=== PATIENT | female | born 1995 | race African-American/Black ===

== ENCOUNTER 2017-06-13 10:58 | Emergency (ER) | payer BC ==
[~2017-06-13] VITALS: Ht 157.5 cm; Wt 60.6 kg
[2017-06-13 11:00] VITALS: TEMP 36.9; Ht 157.5 cm; Wt 60.6 kg
[2017-06-13] MEDS ORDERED: MoRPHine SULFATE 10 MG/ML CARP/VIAL ONE (11:05)
[2017-06-13] MEDS ORDERED: ONDANSETRON 4MG OD TAB ONE (11:06)
[2017-06-13] MEDS ORDERED: SODIUM CHLORIDE 0.9% 1000ML 1,000 ML IV STA (11:35)
[2017-06-13] MEDS ORDERED: BCPILLS PO (11:41)
[2017-06-13] MEDS ORDERED: CHOL1000 PO (11:41)
--- NOTE | 2017-06-13 11:45 | EMERGENCY ROOM VISIT NOTE ---
History First contact with patient: 11:12 Chief Complaint: ABDOMINAL PAIN Stated Complaint: ABDOMINAL PAIN Nursing Triage Summary: See triage note History of Present Illness The patient is a 22 year old female who presents to the Emergency Room with complaints of pelvic pain which has been ongoing intermittently for the past few weeks. The patient states last week, she went to [facility] , where she was scheduled for an ultrasound which is to be performed this Monday. She states yesterday, her pain worsened and became more severe across her entire lower abdomen. She went to [facility] where a pelvic examination with cultures was ordered and performed, and she was diagnosed with pelvic inflammatory disease. The patient was started on doxycycline 100 mg twice daily 14 days and Flagyl 500 mg twice daily 14 days, Plan B, and oral contraceptive pills, as she had unprotected sex 2 days ago. The patient states last evening, she took all medications after dinner, and did not note any significant problems. This morning, she did not eat breakfast, but took her first dose of doxycycline in class on an empty stomach, and shortly afterwards began experiencing nausea, dizziness, and one episode of vomiting. She states the pelvic pain returned, and went from a 6/10 to a 9/10. She states at that time, she became slightly disoriented and was complaining of some mild palpitations. Her symptoms improved, however she contacted the ambulance for transport to the emergency department, as she continued to have some mild pain. She does report one episode of diarrhea a few days ago, but has not had anything since. She denies any fever, chills, upper respiratory infection symptoms, difficulty breathing, cough, or chest pain. She states she has had a mild sore throat which began yesterday, but denies any other symptoms. She describes the abdominal pain as a dull, constant ache, and when worse it becomes very sharp and stabbing. The symptoms are worse on palpation, but improved after she was given morphine. She still has not had anything to eat. She denies any vaginal discharge pain. She does report pain with intercourse. Her last menstrual period was June 04. Review of Systems A complete 10 point review of systems was reviewed with the patient with pertinent positives and negatives as per history of present illness. All else were negative. Past Medical/Surgical History None Social History Smoking Status: Never Smoker Smokeless Tobacco Use: No Alcohol Use: none Drug Use: none Marital Status: single Housing Status: lives with roommate Occupation Status: [employer] student Current/Historical Medications Scheduled Control Pills ( Control Pills), 1 TAB PO DAILY Cholecalciferol (Vitamin D3), 1,000 UNITS PO DAILY Ondasetron Odt (Zofran Odt), 4 MG SL Q6H Physical Exam Vital Signs Date Time Temp Pulse Resp B/P (MAP) Pulse Ox O2 Delivery O2 Flow Rate FiO2 06/13/17 13:00 64 18 101/70 100 Room Air 06/13/17 11:00 36.9 100 16 124/80 100 Room Air Physical Exam VITALS: Vitals are noted on the nurse's note and reviewed by myself. Vital signs stable. GENERAL: This is a 22-year-old black female, in no acute distress, nondiaphoretic, well-developed well-nourished. SKIN: The skin was without rashes, erythema, edema, or bruising. There is no tenting of the skin. Capillary reflex less than 2 seconds. HEAD: Normocephalic atraumatic. EARS: External auditory canals clear, tympanic membranes pearly escamilla without erythema or effusion bilaterally. EYES: Pupils equal round and reactive to light and accommodation. Conjunctivae without injection, sclerae without icterus. Extraocular movements intact. NOSE: Patent, turbinates without inflammation or discharge. No sinus tenderness. MOUTH: Mucous membranes moist. Tonsils are not enlarged. Pharynx without erythema or exudate. Uvula midline. Airway patent. Tongue does not deviate. NECK: Supple without nuchal rigidity. No lymphadenopathy. No thyromegaly. Cervical spine is nontender. No JVD. HEART: Regular rate and rhythm without murmurs gallops or rubs. LUNGS: Clear to auscultation bilaterally without wheezes, rales or rhonchi. No dullness to percussion. No retractions or accessory muscle use. ABDOMEN: Positive bowel sounds x 4. Normal tympanic percussion. Tenderness on palpation of the right lower and left lower quadrants, over the pelvis. The abdomen was otherwise soft, nontender, without masses or organomegaly. Hong sign negative. No guarding or rebound tenderness. MUSCULOSKELETAL: No muscle atrophy, erythema, or edema noted. Full range of motion without joint tenderness in all extremities. No tenderness to palpation. Normal gait. Strength 5/5 throughout. NEURO: Patient was alert and oriented to person place and time. Normal sensation to light and sharp touch. Deep tendon reflexes 2+ throughout. No focal neurological deficits. Medical Decision & Procedures ER Provider Diagnostic Interpretation: PELVIC COMPLETE NON OB CLINICAL HISTORY: pelvic pain PAIN COMPARISON STUDY: None FINDINGS: The uterus measured 7.2 cm. The endometrial stripe measured 8 mm. The right ovary measured 3.9 cm maximum dimension with normal vascular flow. The left ovary measured 3.7 cm maximum dimension with normal vascular flow.. There is no ultrasonographic evidence of ovarian torsion. It should be noted that ovarian torsion can be present with normal Doppler ultrasonographic findings. There was no evidence of pathologic free pelvic fluid. IMPRESSION: Normal pelvic ultrasound. Small subcentimeters ovarian follicular cysts bilaterally. Normal vascular flow. Laboratory Results 06/13/17 11:49 Red Blood Count 5.28, Mean Corpuscular Volume 77.5, Mean Corpuscular Hemoglobin 26.3, Mean Corpuscular Hemoglobin Concent 34.0, Mean Platelet Volume 9.2, Neutrophils (%) (Auto) 70.8, Lymphocytes (%) (Auto) 23.0, Monocytes (%) (Auto) 4.0, Eosinophils (%) (Auto) 1.4, Basophils (%) (Auto) 0.4, Neutrophils # (Auto) 6.40, Lymphocytes # (Auto) 2.08, Monocytes # (Auto) 0.36, Eosinophils # (Auto) 0.13, Basophils # (Auto) 0.04 06/13/17 11:49 Test 06/13/17 11:49 White Blood Count 9.05 K/uL (4.8-10.8) Red Blood Count 5.28 M/uL (4.2-5.4) Hemoglobin 13.9 g/dL (12.0-16.0) Hematocrit 40.9 % (37-47) Mean Corpuscular Volume 77.5 fL (80-100) Mean Corpuscular Hemoglobin 26.3 pg (25-34) Mean Corpuscular Hemoglobin Concent 34.0 g/dl (32-36) Platelet Count 379 K/uL (130-400) Mean Platelet Volume 9.2 fL (7.4-10.4) Neutrophils (%) (Auto) 70.8 % Lymphocytes (%) (Auto) 23.0 % Monocytes (%) (Auto) 4.0 % Eosinophils (%) (Auto) 1.4 % Basophils (%) (Auto) 0.4 % Neutrophils # (Auto) 6.40 K/uL (1.4-6.5) Lymphocytes # (Auto) 2.08 K/uL (1.2-3.4) Monocytes # (Auto) 0.36 K/uL (0.11-0.59) Eosinophils # (Auto) 0.13 K/uL (0-0.5) Basophils # (Auto) 0.04 K/uL (0-0.2) RDW Standard Deviation 41.3 fL (36.4-46.3) RDW Coefficient of Variation 14.7 % (11.5-14.5) Immature Granulocyte % (Auto) 0.4 % Immature Granulocyte # (Auto) 0.04 K/uL (0.00-0.02) Urine Color DK YELLOW Urine Appearance CLEAR (CLEAR) Urine pH 6.0 (4.5-7.5) Urine Specific [place] 1.030 (1.000-1.030) Urine Protein NEG (NEG) Urine Glucose (UA) NEG (NEG) Urine Ketones 3+ (NEG) Urine Occult Blood NEG (NEG) Urine Nitrite NEG (NEG) Urine Bilirubin NEG (NEG) Urine Urobilinogen NEG (NEG) Urine Leukocyte Esterase TRACE (NEG) Urine WBC (Auto) 1-5 /hpf (0-5) Urine RBC (Auto) 0-4 /hpf (0-4) Urine Hyaline Casts (Auto) 1-5 /lpf (0-5) Urine Epithelial Cells (Auto) >30 /lpf (0-5) Urine Bacteria (Auto) NEG (NEG) Urine Test NEG (NEG) Anion Gap 7.0 mmol/L (3-11) Est Creatinine Clear Calc Drug Dose 96.6 ml/min Estimated GFR () 124.0 Estimated GFR (Non- 107.0 BUN/Creatinine Ratio 16.0 (10-20) Calcium Level 9.2 mg/dl (8.5-10.1) Total Bilirubin 0.5 mg/dl (0.2-1) Aspartate Amino Transf (AST/SGOT) 17 U/L (15-37) Alanine Aminotransferase (ALT/SGPT) 21 U/L (12-78) Alkaline Phosphatase 88 U/L (45-117) Total Protein 8.8 gm/dl (6.4-8.2) Albumin 4.6 gm/dl (3.4-5.0) Globulin 4.2 gm/dl (2.5-4.0) Albumin/Globulin Ratio 1.1 (0.9-2) Medications Administered Medications (Trade) Dose Ordered Sig/Merary Route Start Time Stop Time Status Last Admin Dose Admin Sodium Chloride 1,000 ml @ 999 mls/hr Q1H1M STAT IV 06/13/17 11:35 06/13/17 12:35 DC 06/13/17 11:35 999 MLS/HR ED Course Patient was seen and evaluated as above. She did arrive ALS, and was given IV morphine and Zofran prior to arrival. Labs collected and ultrasound performed. The patient was given 1 L normal saline solution. I contacted to [facility] regarding patient's previous visit. I did review the medical records faxed here from [facility]. She did have pelvic exam, labs drawn, and cultures obtained at [facility]. I discussed the findings of all testing performed with the patient at bedside. Discharge instructions reviewed, the patient was discharged home in good condition. Medical Decision This is a 22-year-old female patient presents to the emergency department today complaining of ongoing pelvic pain which has been going on since May. She is being followed by [facility], who have ordered some tests to be performed. She was diagnosed yesterday with pelvic inflammatory disorder, given 250 mg Rocephin, doxycycline, Flagyl, Plan B, and was advised to restart her control pills at that time. The patient took all of these medications last night without problems. She tried taking her medication this morning without eating, and shortly after taking medicine, began experiencing significant nausea, vomiting, and worsening pelvic pain. She was given morphine prior to arrival, and did improve significantly with this medication. She has been completely asymptomatic with the exception of some tenderness on examination while here in the emergency department. Urine test negative. CBC without leukocytosis, anemia, thrombocytopenia. CMP without significant renal, hepatic, or electrolyte abnormality. Ultrasound was as above , and did not show any obvious signs of torsion, ovarian cyst, or other causes of her pain. I suspect the patient is experiencing a pelvic inflammatory disease, did encourage her to continue follow-up with [facility]. I discussed with her that she should continue taking all medications as prescribed, and consider taking them with food, as this may help with her nausea. The patient was encouraged to use Zofran as needed for nausea. The patient may need referral to gynecology, however I feel that [facility] services can manage this, as they are already addressing the patient's other concerns. All questions were answered to patient's satisfaction. Differential diagnosis includes PID, chlamydia, gonorrhea, syphilis, HIV, , ectopic , ovarian cyst, ovarian torsion, endometriosis, urinary tract infection, renal colic, abscess, malignancy, and others Medication Reconcilliation Current Medication List: was personally reviewed by me Blood Pressure Screening Patient's blood pressure: Normal blood pressure Impression Primary Impression: Pelvic inflammatory disease (PID) Departure Information Dispostion Home / Self-Care Condition GOOD Prescriptions Ondasetron Odt (ZOFRAN ODT) 4 Mg Tab 4 MG SL Q6H for Nausea, #6 TAB Prov: Nadya Galeana PA-C 06/13/17 Referrals [facility] (PCP) Patient Instructions ED PID, My [facility] Additional Instructions You were seen in the ED today for pelvic pain, nausea, and vomiting. As discussed, I suspect your symptoms are related to recent PID diagnosis and side effects to all of the medications you are currently taking. Your workup here in the emergency department was overall negative. You were given pain medication while en route to the ED. Please do not drive or operate any machinery today. As discussed, I recommend taking the antibiotics you were prescribed with food to help decrease nausea. You have been prescribed Zofran to be used for any nausea or vomiting. Take as prescribed. Please continue to follow up with [facility] regarding ongoing management of your pelvic pain. As discussed, you may need referral to a [facility] administrator for further evaluation. Please continue to take all medications as prescribed. Return to the emergency department for significantly worsening abdominal pain, fever, intractable vomiting, significantly worsening systemic symptoms, or other concerning symptoms.
[2017-06-13 12:18] LABS: BASO % 0.4 %; BASO ABS # 0.04 K/uL (0-0.2); EOS % 1.4 %; EOS ABS # 0.13 K/uL (0-0.5); HEMATOCRIT 40.9 % (37-47); HEMOGLOBIN 13.9 g/dL (12.0-16.0); IG# 0.04 K/uL (0.00-0.02); LYMPH ABS # 2.08 K/uL (1.2-3.4); MEAN CELL VOLUME 77.5 fL (80-100); MEAN CORPUSCULAR HEMOGLOBIN 26.3 pg (25-34); MEAN PLATELET VOLUME 9.2 fL (7.4-10.4); MONO ABS # 0.36 K/uL (0.11-0.59); NEUT % 70.8 %; PLATELET COUNT 379 K/uL (130-400); RED CELL DISTRIBUTION WIDTH CV 14.7 % (11.5-14.5); RED CELL DISTRIBUTION WIDTH SD 41.3 fL (36.4-46.3); WHITE BLOOD COUNT 9.05 K/uL (4.8-10.8)
[2017-06-13 12:36] LABS: ALBUMIN 4.6 gm/dl (3.4-5.0); CALCIUM 9.2 mg/dl (8.5-10.1); CREATININE 0.79 mg/dl (0.60-1.20); POTASSIUM 3.6 mmol/L (3.5-5.1)
[2017-06-13 12:38] LABS: TOTAL PROTEIN 8.8 gm/dl (6.4-8.2)
--- NOTE | 2017-06-13 12:39 | DIAGNOSTIC IMAGING REPORT ---
PELVIC COMPLETE NON OB CLINICAL HISTORY: pelvic pain PAIN COMPARISON STUDY: None FINDINGS: The uterus measured 7.2 cm. The endometrial stripe measured 8 mm. The right ovary measured 3.9 cm maximum dimension with normal vascular flow. The left ovary measured 3.7 cm maximum dimension with normal vascular flow.. There is no ultrasonographic evidence of ovarian torsion. It should be noted that ovarian torsion can be present with normal Doppler ultrasonographic findings. There was no evidence of pathologic free pelvic fluid. IMPRESSION: Normal pelvic ultrasound. Small subcentimeters ovarian follicular cysts bilaterally. Normal vascular flow. The above report was generated using voice recognition software. It may contain grammatical, syntax or spelling errors. Electronically signed by: Forest Choi M.D. 06/13/2017 12:37 PM Dictated Date/Time: 06/13/2017 12:35 PM
[2017-06-13] MEDS ORDERED: ONDA4TAB10 SL (13:35)
[2017-06-13 14:23] VITALS: BP 108/74; PULSE 73; O2SAT 99
== END 2017-06-13 14:24 | disposition home or self-care (01) ==
LOC: EDBD 10:58 → C.EDC 11:00
DX: N73.9 Female pelvic inflammatory disease, unspecified (principal)

== ENCOUNTER 2017-06-15 14:27 | Emergency (ER) | payer BC ==
[~2017-06-15] VITALS: Ht 157.5 cm; Wt 59.2 kg
[~2017-06-15 14:27] MED LIST: BCPILLS PO; CHOL1000 PO; ONDA4TAB10 SL
[2017-06-15 14:32] VITALS: Ht 157.5 cm; Wt 59.2 kg
--- NOTE | 2017-06-15 16:41 | EMERGENCY ROOM VISIT NOTE ---
History First contact with patient: 16:32 Chief Complaint: BACK PAIN Stated Complaint: SHARP PAIN UP SPINE CHEST History of Present Illness The patient is a 22 year old female who presents to the Emergency Room with complaints of both abdominal and back pain. The pains begin in her pelvis and radiate upward respectively, ceasing below the diaphragm. The pain was present a few weeks ago and patient was swabbed for G&C and treated for PID with doxycycline and metronidazole by [facility]. She has another week of these antibiotics to complete the course. She also underwent a pelvic ultra sound which was negative for acute pathology and only showed small ovarian follicular cysts. The pain restarted yesterday and has progressively worsened since then. The pain is associated with a chest discomfort, palpitations, lightheadedness, and some nausea. There has been no diaphoresis or vomiting. Patient is unaware of triggers, although states pain may be slightly worse with movement, and is no worse with food or with voiding/ stooling. She denies urinary symptoms, but states she has a history of UTIs - 4 in the last 6 months, and had a kidney infection last year secondary to untreated UTI. Patient states she had some diarrhea several days ago, but has not had a BM in 5 days. Pain is only mildly improved with lying on her back and ibuprofen 800mg. She did not try warm compress. Pain waxes and wanes and is 7/ 10 in severity currently. Patient is feeling fatigued, but denies fevers or chills. Had vomiting when taking abx for PID without food, but this has since resolved. No previous episode of similar pain. GB and appendix still in place. Sexually active with BF. No vaginal discharge. LMP 06/04/17. Review of Systems See HPI for pertinent positives and negatives. A total of ten systems were reviewed and were otherwise negative. Past Medical/Surgical History ovarian cysts fibrocystic breast lumps umbilical hernia s/p repair Low vitamin D3 Social History Smoking Status: Never Smoker Alcohol Use: none Drug Use: none Marital Status: single Housing Status: lives with roommate Occupation Status: [employer] student Current/Historical Medications Scheduled Control Pills ( Control Pills), 1 TAB PO DAILY Cholecalciferol (Vitamin D3), 1,000 UNITS PO DAILY Ondasetron Odt (Zofran Odt), 4 MG SL Q6H Polyethylene Glycol 3350 (Miralax), 17 GM PO DAILY Sulfa/Trimethoprim (Bactrim Ds 800MG/160MG), 1 TAB PO BID Physical Exam Vital Signs Date Time Temp Pulse Resp B/P (MAP) Pulse Ox O2 Delivery O2 Flow Rate FiO2 06/15/17 20:15 80 16 110/78 98 06/15/17 20:01 83 16 111/76 96 Room Air 06/15/17 18:30 75 16 112/77 99 Room Air 06/15/17 18:04 78 16 116/69 100 Room Air 06/15/17 17:08 37.3 79 16 116/69 99 Room Air 06/15/17 14:32 36.9 81 20 122/85 98 Room Air Physical Exam GENERAL: alert, well appearing, lying in bed, no acute distress, non-toxic HEAD: Normocephalic, atraumatic. No sinus tenderness. EYES: PERRL, EOMI, normal sclera and conjunctiva OROPHARYNX: No exudate, no erythema. Lips, buccal mucosa, and tongue normal and mucous membranes are dry NECK: Supple, no nuchal rigidity, no adenopathy, non-tender LUNGS: No reproducible chest wall tenderness. Clear to auscultation. Normal chest wall mechanics, good air entry. No crepitations, crackles, or wheezes HEART: RRR, S1 and S2 normal, no murmurs appreciated ABDOMEN: Soft, suprapubic and RLQ tenderness - Hong's negative, Rovsing and psoas negative, no rebound or guarding, normo-active bowel sounds BACK: Back is symmetrical on inspection, no deformities, no CVA tenderness. SKIN: Warm, pink, dry. No erythema, rashes, or bruising. EXTREMITIES: Grossly normal. Moving all 4 limbs. Calves non tender. NEURO: Alert, Ox3. No focal deficits. Normal speech. PSYCH: Mood and affect appropriate. Medical Decision & Procedures ER Provider Diagnostic Interpretation: ABD/PELVIS IV CONTRAST ONLY CT DOSE: 266.58 mGy.cm HISTORY: Pain. Flank pain. assess appenix and right kidney (UTI and RLQ + R flank pain) TECHNIQUE: Multiaxial CT images of the abdomen and pelvis were performed following the use of intravenous contrast. A dose lowering technique was utilized adhering to the principles of ALARA. COMPARISON STUDY: None. FINDINGS: The lung bases are clear. The liver, spleen, gallbladder, pancreas, kidneys, and adrenal glands are within normal limits. No bowel wall thickening or obstruction. The pelvic organs are unremarkable. No suspicious lytic or blastic osseous lesions. The appendix is normal IMPRESSION: Normal appendix and kidneys. Nonobstructive bowel pattern. No acute process. Laboratory Results 06/15/17 16:55 Red Blood Count 4.81, Mean Corpuscular Volume 77.1, Mean Corpuscular Hemoglobin 26.0, Mean Corpuscular Hemoglobin Concent 33.7, Mean Platelet Volume 9.2, Neutrophils (%) (Auto) 46.8, Lymphocytes (%) (Auto) 41.0, Monocytes (%) (Auto) 9.4, Eosinophils (%) (Auto) 2.2, Basophils (%) (Auto) 0.6, Neutrophils # (Auto) 3.02, Lymphocytes # (Auto) 2.65, Monocytes # (Auto) 0.61, Eosinophils # (Auto) 0.14, Basophils # (Auto) 0.04 06/15/17 16:55 Test 06/15/17 16:30 06/15/17 16:55 Urine Color DK YELLOW Urine Appearance CLOUDY (CLEAR) Urine pH 5.5 (4.5-7.5) Urine Specific [place] 1.031 (1.000-1.030) Urine Protein TRACE (NEG) Urine Glucose (UA) NEG (NEG) Urine Ketones TRACE (NEG) Urine Occult Blood NEG (NEG) Urine Nitrite POS (NEG) Urine Bilirubin NEG (NEG) Urine Urobilinogen NEG (NEG) Urine Leukocyte Esterase MODERATE (NEG) Urine WBC (Auto) 1-5 /hpf (0-5) Urine RBC (Auto) 0-4 /hpf (0-4) Urine Hyaline Casts (Auto) 10-30 /lpf (0-5) Urine Epithelial Cells (Auto) >30 /lpf (0-5) Urine Bacteria (Auto) NEG (NEG) Urine Renal Epithelial Cells 0-5 /lpf (0-5) Urine Mucus PRESENT (NONE PRSENT) Urine Test NEG (NEG) White Blood Count 6.46 K/uL (4.8-10.8) Red Blood Count 4.81 M/uL (4.2-5.4) Hemoglobin 12.5 g/dL (12.0-16.0) Hematocrit 37.1 % (37-47) Mean Corpuscular Volume 77.1 fL (80-100) Mean Corpuscular Hemoglobin 26.0 pg (25-34) Mean Corpuscular Hemoglobin Concent 33.7 g/dl (32-36) Platelet Count 329 K/uL (130-400) Mean Platelet Volume 9.2 fL (7.4-10.4) Neutrophils (%) (Auto) 46.8 % Lymphocytes (%) (Auto) 41.0 % Monocytes (%) (Auto) 9.4 % Eosinophils (%) (Auto) 2.2 % Basophils (%) (Auto) 0.6 % Neutrophils # (Auto) 3.02 K/uL (1.4-6.5) Lymphocytes # (Auto) 2.65 K/uL (1.2-3.4) Monocytes # (Auto) 0.61 K/uL (0.11-0.59) Eosinophils # (Auto) 0.14 K/uL (0-0.5) Basophils # (Auto) 0.04 K/uL (0-0.2) RDW Standard Deviation 42.5 fL (36.4-46.3) RDW Coefficient of Variation 14.9 % (11.5-14.5) Immature Granulocyte % (Auto) 0.0 % Immature Granulocyte # (Auto) 0.00 K/uL (0.00-0.02) Anion Gap 7.0 mmol/L (3-11) Est Creatinine Clear Calc Drug Dose 85.9 ml/min Estimated GFR () 118.6 Estimated GFR (Non- 102.3 BUN/Creatinine Ratio 15.5 (10-20) Calcium Level 9.2 mg/dl (8.5-10.1) Total Bilirubin 0.2 mg/dl (0.2-1) Aspartate Amino Transf (AST/SGOT) 17 U/L (15-37) Alanine Aminotransferase (ALT/SGPT) 23 U/L (12-78) Alkaline Phosphatase 77 U/L (45-117) Troponin I < 0.015 ng/ml (0-0.045) Total Protein 7.7 gm/dl (6.4-8.2) Albumin 4.2 gm/dl (3.4-5.0) Globulin 3.5 gm/dl (2.5-4.0) Albumin/Globulin Ratio 1.2 (0.9-2) Lipase 188 U/L (73-393) Medications Administered Medications (Trade) Dose Ordered Sig/Merary Route Start Time Stop Time Status Last Admin Dose Admin Morphine Sulfate (MoRPHine SULFATE INJ) 2 mg NOW STAT IV 06/15/17 17:27 06/15/17 17:29 DC 06/15/17 17:55 2 MG Ceftriaxone Sodium 1 gm/ Dextrose 50 ml @ 100 mls/hr ONE STAT IV 06/15/17 17:27 06/15/17 17:56 DC 06/15/17 17:55 100 MLS/HR Sodium Chloride 500 ml @ 100 mls/hr Q5H IV 06/15/17 17:30 06/15/17 22:01 DC 06/15/17 17:56 100 MLS/HR Magnesium Citrate (Citrate Of Magnesia Soln) 296 ml NOW ONCE PO 06/15/17 19:15 06/15/17 19:17 DC 06/15/17 19:15 150 ML ED Course Patient was seen and evaluated, including a thorough history and clinical exam Imaging and labs were ordered, as well as Patient was re-evaluated, and stated to be feeling better Patient was informed of results Hospitalist was consulted for discussion Medical Decision Prior records/ancillary studies reviewed. Triage Nursing notes reviewed. Additional history obtained from the patient. The patient's history was concerning for abdominal pain. Differential diagnosis: Etiologies such as appendicitis, pyelonephritis, diverticulitis, PUD, biliary pathology, UTI, pancreatitis, obstruction, mesenteric ischemia, aortic pathology , infections, inflammatory bowel disease, renal colic, as well as others were entertained. Physical examination findings: As above. ER treatment provided: IVF NSS, IV morphine 2mg, IV ceftriaxone 1mg, PO magnesium citrate On reassessment the patient felt better. Diagnostics interpreted by me: The labs revealed normal CBC, BMP, LFT, lipase, troponin. UA positive for nitrites and leukocytes. Imaging studies: CT abdomen/pelvis negative for appendicitis, pyelonephritis, pelvic inflammation. Significant stool burden present. Disposition: By the evaluation outlined above emergent etiologies such as appendicitis, diverticulitis, PUD, biliary pathology, pancreatitis, obstruction, mesenteric ischemia, aortic pathology, infections, inflammatory bowel disease, renal colic , as well as others were deemed relatively unlikely. The patient had a UTI and significant constipation. The patient was informed about the findings as listed above. All questions were answered and she was pleased with the treatment. Patient was discharged with Bactrim DS for 5 days to treat the urinary tract infection. She was advised to continue the doxycycline but discontinue the metronidazole, which she was previously on for PID. She was strongly encouraged to drink fluids, and prescribed daily MiraLAX. Return instructions were outlined and the patient was discharged in stable condition. Referral: The patient was referred back to their primary care physician for follow-up in 2 to 3 days for a recheck of the current condition. Discussion regarding prophylactic management of urinary tract infections with PCP was advised. Medication Reconcilliation Current Medication List: was personally reviewed by ia Blood Pressure Screening Patient's blood pressure: Normal blood pressure Impression Primary Impression: Urinary tract infection Additional Impression: Constipation Departure Information Prescriptions Polyethylene Glycol 3350 (MIRALAX) 1 Pow Pow 17 GM PO DAILY for 14 Days, #238 GM Prov: Alka. Loja MD 06/15/17 Sulfa/Trimethoprim (Bactrim Ds 800MG/160MG) Tab 1 TAB PO BID for 5 Days, #10 TAB Prov: Alka. Loja MD 06/15/17 Referrals [facility] (PCP) Patient Instructions My [facility] Resident Tracking Resident Involvement: Resident Care Provided Care Provided: Adult ED Problem Qualifiers Primary Impression: Urinary tract infection Urinary tract infection type: acute cystitis
[2017-06-15 17:08] VITALS: TEMP 37.3
[2017-06-15 17:10] LABS: BASO % 0.6 %; BASO ABS # 0.04 K/uL (0-0.2); EOS % 2.2 %; EOS ABS # 0.14 K/uL (0-0.5); HEMATOCRIT 37.1 % (37-47); HEMOGLOBIN 12.5 g/dL (12.0-16.0); LYMPH ABS # 2.65 K/uL (1.2-3.4); MEAN CELL VOLUME 77.1 fL (80-100); MEAN CORPUSCULAR HGB CONC 33.7 g/dl (32-36); MEAN PLATELET VOLUME 9.2 fL (7.4-10.4); MONO % 9.4 %; MONO ABS # 0.61 K/uL (0.11-0.59); NEUT % 46.8 %; NEUT ABS # 3.02 K/uL (1.4-6.5); PLATELET COUNT 329 K/uL (130-400); RED CELL DISTRIBUTION WIDTH CV 14.9 % (11.5-14.5); RED CELL DISTRIBUTION WIDTH SD 42.5 fL (36.4-46.3); WHITE BLOOD COUNT 6.46 K/uL (4.8-10.8)
[2017-06-15] MEDS ORDERED: CEFTRIAXONE SOD INJ 1 GM in DEXTROSE 5% ADD-VANTAGE 50ML 50 ML IV STA ×2 (17:23→17:27)
[2017-06-15] MEDS ORDERED: MoRPHine SULFATE 2 MG/ML CARP IV STA ×2 (17:23→17:27)
[2017-06-15] MEDS ORDERED: SODIUM CHLORIDE 0.9% 500ML 500 ML IV SCH (17:30)
[2017-06-15 17:36] LABS: ALBUMIN 4.2 gm/dl (3.4-5.0); CALCIUM 9.2 mg/dl (8.5-10.1); CREATININE 0.82 mg/dl (0.60-1.20)
[2017-06-15 17:38] LABS: TOTAL PROTEIN 7.7 gm/dl (6.4-8.2)
[2017-06-15] MEDS ORDERED: CEFTRIAXONE SOD INJ 1 GM ADDVIAL ONE (17:49)
[2017-06-15] MEDS ORDERED: OPTIRAY 320 IV PRN (18:30)
--- NOTE | 2017-06-15 18:55 | DIAGNOSTIC IMAGING REPORT ---
ABD/PELVIS IV CONTRAST ONLY CT DOSE: 266.58 mGy.cm HISTORY: Pain. Flank pain. assess appenix and right kidney (UTI and RLQ + R flank pain) TECHNIQUE: Multiaxial CT images of the abdomen and pelvis were performed following the use of intravenous contrast. A dose lowering technique was utilized adhering to the principles of ALARA. COMPARISON STUDY: None. FINDINGS: The lung bases are clear. The liver, spleen, gallbladder, pancreas, kidneys, and adrenal glands are within normal limits. No bowel wall thickening or obstruction. The pelvic organs are unremarkable. No suspicious lytic or blastic osseous lesions. The appendix is normal IMPRESSION: Normal appendix and kidneys. Nonobstructive bowel pattern. No acute process. The above report was generated using voice recognition software. It may contain grammatical, syntax or spelling errors. Electronically signed by: Forest Choi M.D. 06/15/2017 6:54 PM Dictated Date/Time: 06/15/2017 6:46 PM
[2017-06-15] MEDS ORDERED: MAGNESIUM CITRATE 296 ML/BTL PO ONE (19:15)
[2017-06-15] MEDS ORDERED: SULF800T23 PO (20:02)
[2017-06-15] MEDS ORDERED: POLY335019 PO (20:02)
[2017-06-15 20:15] VITALS: BP 110/78; PULSE 80; O2SAT 98
--- NOTE | 2017-06-15 20:32 | EMERGENCY ROOM VISIT NOTE ---
History First contact with patient: 16:32 Chief Complaint: BACK PAIN Stated Complaint: SHARP PAIN UP SPINE CHEST History of Present Illness The patient is a 22 year old female who presents to the Emergency Room with complaints of back pain and abdominal pain that has been present since yesterday. The patient also notes associated pain radiating up towards her chest and upper back. She has vomiting. She notes constipation for the last 5 days. She was being treated for PID by health services with doxycycline and Flagyl. She did have some vomiting after that medication. She notes pain is in the midline of her lower abdomen and somewhat right-sided. She has a history of pyelonephritis a year ago as well as for UTIs in the last 6 months. Pt denies LOC, headache, fevers, chills, diaphoresis, visual changes, neck pain , current chest pain, breathing difficulties,melena, hematochezia, numbness, weakness, lymphadenopathy, rash, or other complaints. Review of Systems See HPI for pertinent positives and negatives. A total of ten systems were reviewed and were otherwise negative. Past Medical/Surgical History Pyelonephritis UTI Social History Smoking Status: Never Smoker Alcohol Use: none Drug Use: none Marital Status: single Housing Status: lives with roommate Occupation Status: [employer] student Current/Historical Medications Scheduled Control Pills ( Control Pills), 1 TAB PO DAILY Cholecalciferol (Vitamin D3), 1,000 UNITS PO DAILY Ondasetron Odt (Zofran Odt), 4 MG SL Q6H Polyethylene Glycol 3350 (Miralax), 17 GM PO DAILY Sulfa/Trimethoprim (Bactrim Ds 800MG/160MG), 1 TAB PO BID Physical Exam Vital Signs Date Time Temp Pulse Resp B/P (MAP) Pulse Ox O2 Delivery O2 Flow Rate FiO2 06/15/17 20:15 80 16 110/78 98 06/15/17 20:01 83 16 111/76 96 Room Air 06/15/17 18:30 75 16 112/77 99 Room Air 06/15/17 18:04 78 16 116/69 100 Room Air 06/15/17 17:08 37.3 79 16 116/69 99 Room Air 06/15/17 14:32 36.9 81 20 122/85 98 Room Air Physical Exam GENERAL: Awake, alert, mildly uncomfortable, in no distress HENT: Normocephalic, atraumatic. Oropharynx unremarkable. EYES: Normal conjunctiva. Sclera non-icteric. NECK: Supple. No nuchal rigidity. FROM. No masses. RESPIRATORY: Clear to auscultation. No wheezes. CARDIAC: Normal rate. Normal rhythm. No murmurs. No rubs. Extremities warm and well perfused. Pulses equal. No JVD. GI: Soft, non-distended. Suprapubic and right lower quadrant tenderness to palpation. No rebound or guarding. No masses. RECTAL: Deferred. MUSCULOSKELETAL: Atraumatic. Chest examination reveals no tenderness. The back is symmetrical on inspection without obvious abnormality. There is no CVA tenderness to palpation. No joint edema. No midline tenderness. LOWER EXTREMITIES: Calves are equal size bilaterally and non-tender. No edema. NEURO: Normal sensorium. No sensory or motor deficits noted. SKIN: No rash or jaundice noted. Medical Decision & Procedures Laboratory Results 06/15/17 16:55 Red Blood Count 4.81, Mean Corpuscular Volume 77.1, Mean Corpuscular Hemoglobin 26.0, Mean Corpuscular Hemoglobin Concent 33.7, Mean Platelet Volume 9.2, Neutrophils (%) (Auto) 46.8, Lymphocytes (%) (Auto) 41.0, Monocytes (%) (Auto) 9.4, Eosinophils (%) (Auto) 2.2, Basophils (%) (Auto) 0.6, Neutrophils # (Auto) 3.02, Lymphocytes # (Auto) 2.65, Monocytes # (Auto) 0.61, Eosinophils # (Auto) 0.14, Basophils # (Auto) 0.04 06/15/17 16:55 Test 06/15/17 16:30 06/15/17 16:55 Urine Color DK YELLOW Urine Appearance CLOUDY (CLEAR) Urine pH 5.5 (4.5-7.5) Urine Specific [place] 1.031 (1.000-1.030) Urine Protein TRACE (NEG) Urine Glucose (UA) NEG (NEG) Urine Ketones TRACE (NEG) Urine Occult Blood NEG (NEG) Urine Nitrite POS (NEG) Urine Bilirubin NEG (NEG) Urine Urobilinogen NEG (NEG) Urine Leukocyte Esterase MODERATE (NEG) Urine WBC (Auto) 1-5 /hpf (0-5) Urine RBC (Auto) 0-4 /hpf (0-4) Urine Hyaline Casts (Auto) 10-30 /lpf (0-5) Urine Epithelial Cells (Auto) >30 /lpf (0-5) Urine Bacteria (Auto) NEG (NEG) Urine Renal Epithelial Cells 0-5 /lpf (0-5) Urine Mucus PRESENT (NONE PRSENT) Urine Test NEG (NEG) White Blood Count 6.46 K/uL (4.8-10.8) Red Blood Count 4.81 M/uL (4.2-5.4) Hemoglobin 12.5 g/dL (12.0-16.0) Hematocrit 37.1 % (37-47) Mean Corpuscular Volume 77.1 fL (80-100) Mean Corpuscular Hemoglobin 26.0 pg (25-34) Mean Corpuscular Hemoglobin Concent 33.7 g/dl (32-36) Platelet Count 329 K/uL (130-400) Mean Platelet Volume 9.2 fL (7.4-10.4) Neutrophils (%) (Auto) 46.8 % Lymphocytes (%) (Auto) 41.0 % Monocytes (%) (Auto) 9.4 % Eosinophils (%) (Auto) 2.2 % Basophils (%) (Auto) 0.6 % Neutrophils # (Auto) 3.02 K/uL (1.4-6.5) Lymphocytes # (Auto) 2.65 K/uL (1.2-3.4) Monocytes # (Auto) 0.61 K/uL (0.11-0.59) Eosinophils # (Auto) 0.14 K/uL (0-0.5) Basophils # (Auto) 0.04 K/uL (0-0.2) RDW Standard Deviation 42.5 fL (36.4-46.3) RDW Coefficient of Variation 14.9 % (11.5-14.5) Immature Granulocyte % (Auto) 0.0 % Immature Granulocyte # (Auto) 0.00 K/uL (0.00-0.02) Anion Gap 7.0 mmol/L (3-11) Est Creatinine Clear Calc Drug Dose 85.9 ml/min Estimated GFR () 118.6 Estimated GFR (Non- 102.3 BUN/Creatinine Ratio 15.5 (10-20) Calcium Level 9.2 mg/dl (8.5-10.1) Total Bilirubin 0.2 mg/dl (0.2-1) Aspartate Amino Transf (AST/SGOT) 17 U/L (15-37) Alanine Aminotransferase (ALT/SGPT) 23 U/L (12-78) Alkaline Phosphatase 77 U/L (45-117) Troponin I < 0.015 ng/ml (0-0.045) Total Protein 7.7 gm/dl (6.4-8.2) Albumin 4.2 gm/dl (3.4-5.0) Globulin 3.5 gm/dl (2.5-4.0) Albumin/Globulin Ratio 1.2 (0.9-2) Lipase 188 U/L (73-393) Medications Administered Medications (Trade) Dose Ordered Sig/Merary Route Start Time Stop Time Status Last Admin Dose Admin Morphine Sulfate (MoRPHine SULFATE INJ) 2 mg NOW STAT IV 06/15/17 17:27 06/15/17 17:29 DC 06/15/17 17:55 2 MG Ceftriaxone Sodium 1 gm/ Dextrose 50 ml @ 100 mls/hr ONE STAT IV 06/15/17 17:27 06/15/17 17:56 DC 06/15/17 17:55 100 MLS/HR Sodium Chloride 500 ml @ 100 mls/hr Q5H IV 06/15/17 17:30 07/15/17 17:29 06/15/17 17:56 100 MLS/HR Magnesium Citrate (Citrate Of Magnesia Soln) 296 ml NOW ONCE PO 06/15/17 19:15 06/15/17 19:17 DC 06/15/17 19:15 150 ML Medical Decision Triage Nursing notes reviewed. The patient's presentation and history were concerning for abdominal symptoms, back symptoms and recent treatment for PID. Etiologies such as pyelonephritis, complication of PID treatment, PID, renal colic, appendicitis, diverticulitis, mesenteric ischemia, infections, inflammatory bowel disease, PUD, biliary pathology, UTI, as well as others were entertained. The patient was evaluated. She received a small dose of morphine for pain control. This worked relatively well. She was hydrated. The patient had blood work obtained and this was rather unremarkable. Her urinalysis was concerning for infection. Due to the symptoms and physical findings the patient underwent CT imaging. She had moderate stool throughout the colon. There is no evidence of appendicitis or pelvic pathology. No clear evidence of pyelonephritis on CT imaging. No obstruction seen. She was given a dose of IV Rocephin. She did well with this. She is not had a bowel movement in 5 days. She was given magnesium citrate. The patient does not have a leukocytosis or fever. She has no CVA tenderness. She has a relatively benign abdomen at this point. She is no inflammatory changes in the pelvis on CT imaging. She will continue the doxycycline. She will hold the Flagyl and Bactrim will be initiated. Both the doxycycline and Flagyl are not ideal urinary tract patient' s. Given her significant issues with urinary tract infection history close follow-up as an outpatient will be necessary. The patient had very fleeting complaints of pain radiating up towards her chest. It all originated in the abdomen and back. Her vital signs are stable. Her cardiac pulmonary examination is normal. Workup for those systems were felt to be unnecessary. Return instructions were outlined. The patient was referred to [facility]. If she worsens in any way she will come back to the Emergency Room. The patient was seen and examined with Dr. Loja, resident physician. We discussed the case and treatments ordered, reviewed the results, and determine the disposition. Please refer to the resident's note for additional details. I have been directly involved with the management and disposition as well as independently evaluated the patient as documented in this note. By the evaluation outlined above other emergent etiologies such as those listed in the differential, as well as others, were deemed relatively unlikely. The patient was educated about the findings as listed above. All questions were answered and the patient was pleased with the treatment. Return instructions were outlined and the patient was discharged in stable condition. The patient was referred to [facility] for follow-up for a recheck of the current condition. Impression Primary Impression: UTI (urinary tract infection) Additional Impressions: Constipation Lower abdominal pain Departure Information Dispostion Home / Self-Care Condition GOOD Prescriptions Polyethylene Glycol 3350 (MIRALAX) 1 Pow Pow 17 GM PO DAILY for 14 Days, #238 GM Prov: Alka. Loja MD 06/15/17 Sulfa/Trimethoprim (Bactrim Ds 800MG/160MG) Tab 1 TAB PO BID for 5 Days, #10 TAB Prov: Alka. Loja MD 06/15/17 Forms HOME CARE DOCUMENTATION FORM, IMPORTANT VISIT INFORMATION Patient Instructions My [facility] Additional Instructions You were seen in the ED today for an acute episode of abdominal and back pain. Your vitals were noted to be in normal ranges. Lab work done was all within normal limits. Your urine was consistent with a urinary tract infection. Imaging of the abdomen and pelvis showed normal kidneys, appendix, but significant stool on the bowels. Upon discharge, you are prescribed Bactrim DS, an antibiotic for 5 days for the UTI. Please complete all 5 days of the antibiotics. PLEASE DISCONTINUE THE METRONIDAZOLE, but CONTINUE THE DOXYCYCLINE. For the constipation, we urge you to increase water intake. For the next 2 weeks, you may try Miralax daily to help get the stool out. We recommend increased fiber intake along with increased fluid intake to prevent future constipation. Follow up with your PCP with regards to your recurrent UTIs and prophylactic managment may be warranted for detention health maintenance. You have been examined and treated today on an emergency basis only. This is not a substitute for, or an effort to provide, complete comprehensive medical care. It is impossible to recognize and treat all injuries or illnesses in a single emergency department visit. It is therefore important that you make a follow up with your physician for close monitoring. We urge you to return to ER if similar symptoms return or if you develop worsening or persistent pain, vomiting, headache, fevers, chest pains, difficulty breathing, black or bloody stools, slurred speech, numbness, weakness , visual changes, or as needed. Problem Qualifiers
== END 2017-06-15 20:16 | disposition home or self-care (01) ==
LOC: C.EDB 14:29 → C.EDC 20:16
DX: N30.00 Acute cystitis without hematuria (principal); K59.00 Constipation, unspecified; N83.00 Follicular cyst of ovary, unspecified side; N60.19 Diffuse cystic mastopathy of unspecified breast; Z79.3 Long term (current) use of hormonal contraceptives